=== PATIENT | female | born 1955 | race Caucasian/White ===

== ENCOUNTER → 2016-10-07 | Outpatient (CLI) | payer MEDICARE ==
[~2016-10-07] MED LIST: ADVAIR 2501 DISK W/D PO; B COMPLEX-VITA1 EACH PO; CALCIUM 500 + D1 TAB PO; CARAFATE PO; COMBIVENT INH14.7 GM INH; DIOVAN HCT 160/1 TAB PO; DIOVAN160 MG PO; EVISTA60 MG PO; LASIX PO; LIPITOR PO; LOPRESSOR PO; LYRICA PO; MOMETASONE FURO15 G1 TOP; NASONEX17 GM; PROAIR HFA8.5 GM INH; PROPRANOLOL HCL80 M1 PO; PROTONIX PO; QVAR7.3 GM INH; SINGULAIR PO; SYSTANE 0.3-0.415 ML OU; VITAMIN C PO; [UNRECOGNIZED DRUG - OTHER] PO; [UNRECOGNIZED DRUG - OTHER] PO
--- NOTE | ~2016-10-07 | BD1 ---
[facility] A Service of [facility] & [facility] RADIOLOGY TEXT RESULTS PATIENT: LINDA ULLOA LOCATION: [facility] : 51 UNIT #: [id number] AGE: [address]: TAMMY SCHROEDER DO SEX: F ORDER DR: [id number] [place] [id number] O MR#: [id number] Acc #: [id number] NAME: LINDA ULLOA : 1955 SEX: F STUDY DATE/TIME: 10/07/2016 12:23 UNIT: [facility] ROOM: STUDY DESCRIPTION: BD Dexa Bone Dens 1+ Site Attending Physician: Tammy Schroeder D.O. Referring Physician: Tammy Schroeder D.O. Ordering Physician: Tammy Schroeder D.O. Primary Care Physician: Tammy Schroeder D.O. MEDICAL IMAGING REPORT This report is preliminary unless electronic signature is present. EXAM DXA scan, 10/07/2016. HISTORY Status post menopause with no hormone replacement therapy. Osteopenia. Hysterectomy at age 43 with removal of both ovaries. Family history of breast carcinoma in grandmother. Arthritis. Hypertension with blood pressure medication. FINDINGS Bone mineral density in the left forearm was 0.68 g/cm2, which is 2.3 standard deviations below the mean when compared to the young adult reference population, which is characteristic of osteopenia. This is 1.2 standard deviations below the mean when compared to the age-matched population. Compared with 05/08/2014, there has been a decrease in bone mineral density in the left forearm of 5.2%. Bone mineral density in the left femoral neck was 0.958 g/cm2, which is 0.6 standard deviation below the mean when compared to the young adult reference population, which is within the range of normal. This is 0.7 standard deviation above the mean when compared to the age-matched population. Compared with 05/08/2014, there has been an increase in bone mineral density in the left hip of 0.5%. Bone mineral density in the right femoral neck was 0.903 g/cm2, which is 1 standard deviation below the mean when compared to the young adult reference population, which is characteristic of osteopenia. This is 0.3 standard deviation above the mean when compared to the age-matched population. Compared with 05/08/2014, there has been a decrease in bone mineral density in the right hip of 3.8%. IMPRESSION [facility] A Service of [facility] RADIOLOGY TEXT RESULTS PATIENT: LINDA ULLOA LOCATION: [facility] : 51 UNIT #: [id number] AGE: [address]: TAMMY SCHROEDER DO SEX: F ORDER DR: Bone mineral density in the left forearm and the right hip characteristic of osteopenia, and within the left hip within the range of normal. Compared with 05/08/2014, there has been an increase in bone mineral density in the left hip and a decrease in bone mineral density in the right hip and left forearm. Dictated by... Campos Pineda M.D. THIS IS AN ELECTRONICALLY VERIFIED REPORT Campos Pineda M.D. at 10/10/2016 10:35 AM Franki TD: 10/07/2016 17:43 JOB #: [id number] MEDICAL IMAGING REPORT
== END | disposition home or self-care (01) ==
LOC: SRAD 12:07
DX: M81.0 Age-related osteoporosis without current pathological fracture (principal); M85.89 Other specified disorders of bone density and structure, multiple sites; Z78.0 Asymptomatic menopausal state
CPT/HCPCS: 77080